=== PATIENT | female | born 1955 | race Caucasian/White ===

== ENCOUNTER 2018-09-15 15:04 | Emergency (ER) | payer OTHER ==
[~2018-09-15] VITALS: Ht 167.6 cm; Wt 104.3 kg
[2018-09-15 15:30] VITALS: BP 143/76
--- NOTE | 2018-09-15 15:35 | Emergency Room Report ---
History of Present Illness General Chief Complaint: Constipation Source: Patient Present Illness HPI Patient is a 62-year-old female presented after increased constipation. Patient was noted to have increased rectal fullness. She reports having prior history of hemorrhoids. She had reportedly had a colonoscopy many years ago. Patient had prior C-sections but denies other prior abdominal surgeries. She denies any abdominal pain or vomiting. Patient had intermittently been using laxatives Allergies: Coded Allergies: No Known Allergies (Unverified , 09/15/18) Patient History Last Menstrual Period: na Nursing Documentation-[facility] Past Medical History: No History, Except For Hx Diabetes: Yes Hx Gastrointestinal Problems: Yes - constipation Review of Systems All Other Systems: negative except mentioned in HPI Physical Exam Vital Signs Date Time Temp Pulse Resp B/P (MAP) Pulse Ox O2 Delivery O2 Flow Rate FiO2 09/15/18 15:11 97.5 85 18 144/69 98 Room Air General Appearance: well appearing, no apparent distress, alert, GCS 15 Head: normocephalic, atraumatic ENT: hearing grossly normal, normal voice Neck: full range of motion, supple Respiratory: normal inspection, normal breath sounds, no respiratory distress, speaking full sentences Rectal: hemorrhoids - enlarged, no thrombosis Neurologic: normal gait Psychiatric: mood/affect normal Skin: no rash Medical Decision Making Diagnostic Impression: Primary Impression: Constipation ER Course Patient is a 62-year-old female presented after increased constipation. Differential diagnosis include was not limited to bowel obstruction, thrombosed hemorrhoid, irritable bowel syndrome among others. Patient was noted to have prior history of constipation and this is a long-standing problem for this patient. Patient was given fleets enema with complete resolution of symptoms. Patient states she felt better and wanted to go home. Patient was discharge home. She was advised to follow-up with her primary care physician for GI referral. She was advised that she may need further imaging to evaluate for constipation causes. Last Vital Signs Date Time Temp Pulse Resp B/P (MAP) Pulse Ox O2 Delivery O2 Flow Rate FiO2 09/15/18 15:11 97.5 85 18 144/69 98 Room Air Status: improved Disposition: HOME, SELF-CARE Condition: Stable Scripts Docusate Sodium* (COLACE*) 100 Mg Capsule 100 MG ORAL TWICE A DAY, #30 CAP Prov: Tyler Mendoza MD 09/15/18 Tyler Mendoza MD Sep 15, 2018 15:35
[2018-09-15] MEDS ORDERED: Fleet's Enema 133ml RECTAL ONE (15:45)
[2018-09-15] MEDS ORDERED: COLACE100 MG ORAL (16:15)
[2018-09-15 16:31] VITALS: BP 148/74
== END 2018-09-15 16:15 | disposition home or self-care (01) ==
LOC: EMR 15:48
DX: K59.00 Constipation, unspecified (principal); E11.9 Type 2 diabetes mellitus without complications
CPT/HCPCS: 99282